=== PATIENT | female | born 1975 | race Caucasian/White ===

== ENCOUNTER 2018-12-17 16:31 | Emergency (ER) | payer OTHER ==
[~2018-12-17] VITALS: Ht 172.7 cm; Wt 77.1 kg
[~2018-12-17 16:31] MED LIST: AUGMENTIN 875875 M1 PO; CELEXA 20 MG TA20 MG PO; IBUPROFEN 600600 M1 PO; LISINOPRIL20 MG PO; NORCO 5-325 TA1 EACH PO; ZYRTEC10 M2 PO
[2018-12-17 17:14] LABS: CALCIUM 8.9 mg/dL (8.5-10.1); CREATININE 0.7 mg/dL (0.6-1.0); POTASSIUM 4.1 mmol/L (3.5-5.1)
[2018-12-17 17:15] LABS: URINE BILIRUBIN NEGATIVE (Negative); URINE BLOOD NEGATIVE (Negative); URINE CLARITY CLEAR; URINE COLOR YELLOW; URINE GLUCOSE-RANDOM* NEGATIVE (Negative); URINE KETONES NEGATIVE (Negative); URINE LEUKOCYTES 1+ (Negative); URINE NITRITE NEGATIVE (Negative); URINE PROTEIN (DIPSTICK) NEGATIVE (Negative); URINE UROBILINOGEN 0.2 E.U./dl (0.2-1.0)
[2018-12-17 17:22] LABS: ABSOLUTE NEUTROPHILS 4.8 thou/uL (1.4-8.2); ALBUMIN 3.5 g/dL (3.4-5.0); BASOPHILS 0.4 % (0.0-2.0); EOSINOPHILS 2.2 % (0.0-3.0); HEMATOCRIT 43.3 % (37.0-47.0); HEMOGLOBIN 13.8 gm/dL (12.0-15.0); LYMPHOCYTES 22.4 % (24.0-44.0); MCH 30.1 pg (26.0-34.0); MCHC 31.9 g/dL (28.0-37.0); MCV 94.5 fL (80.0-100.0); MONOCYTES 6.3 % (1.0-8.0); PLATELET COUNT 150 thou/uL (150-400); POLYS 68.7 % (36.0-66.0); RBC 4.58 mil/uL (4.20-5.00); RDW 13.4 % (10.5-14.5); TOTAL BILIRUBIN 0.5 mg/dL (<0.1-1.0); WBC 6.9 thou/uL (4.0-11.0)
[2018-12-17 17:34] LABS: BACTERIA None Seen /HPF (None Seen); CRYSTALS None Seen /LPF (None Seen); SQUAMOUS 0-3 Few /LPF (0-3); URINE RBC None Seen /HPF (0-2); URINE WBC 0-5 Rare /HPF (0-5)
[2018-12-17] MEDS ORDERED: ADDERALL 20 MG20 M1 PO (18:02)
[2018-12-17] MEDS ORDERED: NORFLEX100 MG PO (21:36)
[2018-12-17] MEDS ORDERED: BUTALB-APAP-CA1 EACH PO (21:36)
[2018-12-17 22:08] VITALS: BP 120/72
== END 2018-12-17 22:09 | disposition home or self-care (01) ==
LOC: ER 16:31
PROVIDERS: Emergency Medicine
DX: G44.209 Tension-type headache, unspecified, not intractable (principal); I10 Essential (primary) hypertension; F32.9 Major depressive disorder, single episode, unspecified; Z98.890 Other specified postprocedural states